=== PATIENT | female | born 1945 | race Caucasian/White ===

== ENCOUNTER → 2016-12-04 | Outpatient (CLI) | payer OTHER, MEDICARE ==
--- NOTE | 2016-12-04 16:35 | MRI ---
HISTORY: Stroke, large vessel. Study: MRI brain without contrast. Comparison: None available. Technique: Multiplanar multi-sequence MRI of the brain was obtained utilizing standard departmental protocol. Sagittal and axial T1 weighted images were obtained. Axial T2 and flair weighted images were performed as well. Axial diffusion weighted and ADC trace mapping was performed. Findings: Age related cortical atrophy and small-vessel ischemic changes. Within the posterior occipital lobe there is a T1/T2 heterogeneous 1.2 cm AP by 1.1 cm transverse by 1.2 cm craniocaudal intra-axial les ion. No obvious restricted diffusion. Question of blooming artifact. The remaining visualized zhou a nd white matter demonstrates normal signal characteristics. The midline structures appear unremarkab le. No extra-axial fluid collections are observed. The ventricular system appears symmetric and no ndilated. The CP angle is normal in its appearance without brainstem mass or evidence for acoustic neuroma. The flow voids on both T1 and T2 weighted imaging appear unremarkable. Evaluation of the diffusion weighted imaging does not demonstrate abnormal signal characteristics to suggest acute is chemic change. The extracranial structures are unremarkable. IMPRESSION: 1. 1.2 cm posterior right occipital lobe intra-axial lesion as above. No obvious restricted diffusi on. Differential diagnosis includes, but is not limited to: Vascular malformation such as cavernoma, remote trauma, vascular insult, infection, or less likely metastatic disease versus malignancy. Rec ommend MRI of the brain with contrast for further characterization. 2. No evidence of acute ischemia/infarction. Reported By:
== END ==
LOC: RAD 14:31
PROVIDERS: ATTEND Psychiatry & Neurology Neurology
DX: I63.8 Other cerebral infarction (principal)
CPT/HCPCS: 70551

== ENCOUNTER → 2016-12-20 | Outpatient (CLI) | payer OTHER, MEDICARE ==
[2016-12-20 14:37] LABS: CREATININE 1.34 mg/dL (0.55-1.02)
--- NOTE | 2016-12-23 16:57 | MRI ---
MRI BRAIN WITHOUT AND WITH CONTRAST CLINICAL HISTORY: 71-year-old female with headaches and blurred vision. COMPARISON: MR brain December 04, 2016. TECHNIQUE: Multiplanar, multisequence MR images of the brain were obtained prior to and following t he uneventful intravenous administration of contrast. FINDINGS: There is no evidence of diffusion restriction. The craniocervical junction is normal. Pituitary and optic nerve complex are normal. Multifocal punctate T2 FLAIR signal hyperintensities are present wit hin the periventricular and supraventricular white matter that are nonspecific in appearance but mos t likely to represent microvascular white matter ischemic changes. Encephalomalacia within the infer ior aspect of the right occipital lobe within the lingual gyrus with associated gliosis. Normal sign al characteristics and morphology are demonstrated within the corpus callosum, deep zhou nuclei, bra instem and cerebellum. Age advanced cortical volume loss is present, with commensurate sulcal and ve ntricular prominence. The major vascular channels opacify normally and the major vascular flow voids , to include the dural venous sinuses, are intact. The basilar cisterns are normal. There is no evid ence of abnormal intracranial enhancement. Left lens implant. The orbits and globes are otherwise within normal limits. Mild mucosal thickening of the right maxillary sinus with trace fluid in the right mastoid air cells. The remaining paranas al sinuses, left mastoids and tympanic cavities are clear. IMPRESSION: 1. Region of concern on recent prior MR is most consistent with prior ischemic insult with encephalo malacia and surrounding gliosis. 2. Chronic microvascular white matter ischemic disease with associated volume loss. 3. No acute ischemic or hemorrhagic insult. Reported By:
== END ==
LOC: RAD 13:58
PROVIDERS: ATTEND Psychiatry & Neurology Neurology
DX: Q28.3 Other malformations of cerebral vessels (principal)
CPT/HCPCS: 36415; 70553; 82565; 84520

== ENCOUNTER → 2017-03-18 | Outpatient (CLI) | payer OTHER, MEDICARE ==
--- NOTE | 2017-03-19 09:42 | MG ---
HISTORY: SCREENING Comparison: 02/29/2016 FINDINGS: Bilateral CC and MLO projections of the right and left breast were obtained. Scattered fibroglandula r tissue is seen to be present. No significant architectural distortion, mass or clustered microcalc ifications can be observed to suggest malignancy. No skin thickening or nipple retraction is appreci ated. No pathological lymphadenopathy can be identified. IMPRESSION: NO RADIOGRAPHIC EVIDENCE OF MALIGNANCY. ACR CATEGORY I - NEGATIVE EXAM. FOLLOW-UP EXAM 1 YEAR. Diagnostic CAD was utilized and reviewed. * 0 (ZERO) - ASSESSMENT INCOMPLETE; ADDITIONAL IMAGING IS NEEDED. * 1/ (ONE) - NEGATIVE. * 2/II (TWO) - BENIGN FINDINGS. * 3/III (THREE) - PROBABLY BENIGN FINDING; SHORT INTERVAL FOLLOW-UP SUGGESTED. * 4/IV (FOUR) - SUSPICIOUS ABNORMALITY; BIOPSY SHOULD BE CONSIDERED. * 5/V - HIGHLY SUSPICIOUS OF MALIGNANCY; BIOPSY SHOULD BE PERFORMED. A NEGATIVE X-RAY REPORT SHOULD NOT DELAY BIOPSY IF A DOMINANT OR CLINICALLY SUSPICIOUS MASS IS PRESENT; 4 TO 8 PERCENT OF CANCERS ARE NOT IDENTIFIED BY X-RAY. A NEGA TIVE REPORT MAY REINFORCE THE CLINICAL IMPRESSION. ADENOSIS AND DENSE BREASTS MAY OBSCURE AN UNDERLY ING NEOPLASM. Reported By:
== END ==
LOC: RAD 09:18
PROVIDERS: ATTEND Specialist
DX: Z12.31 Encounter for screening mammogram for malignant neoplasm of breast (principal)
CPT/HCPCS: 77067